=== PATIENT | female | born 1945 | race Caucasian/White ===

== ENCOUNTER 2017-03-23 22:32 | Emergency (ER) | payer MEDICARE, MEDICAID ==
[~2017-03-23] VITALS: Ht 160 cm; Wt 59.6 kg
[~2017-03-23 22:32] MED LIST: EVOL140S SQ; FLO110IN IH; NITR0.4T SL
[2017-03-24] MEDS ORDERED: ibuprofen 200mg tablet PO ONE (02:10)
[2017-03-24 03:03] VITALS: BP 121/75
== END 2017-03-24 02:43 | disposition home or self-care (01) ==
LOC: ER 22:33
DX: S62.393A Other fracture of third metacarpal bone, left hand, initial encounter for closed fracture (principal); G89.29 Other chronic pain; M81.0 Age-related osteoporosis without current pathological fracture; K21.9 Gastro-esophageal reflux disease without esophagitis; C18.9 Malignant neoplasm of colon, unspecified; E78.00 Pure hypercholesterolemia, unspecified; Z88.5 Allergy status to narcotic agent; Z88.8 Allergy status to other drugs, medicaments and biological substances; W01.0XXA Fall on same level from slipping, tripping and stumbling without subsequent striking against object, initial encounter; Y93.89 Activity, other specified; Y92.89 Other specified places as the place of occurrence of the external cause; Y99.8 Other external cause status
CPT/HCPCS: 29125; 73130; 99284

== ENCOUNTER 2017-03-27 08:45 | Emergency (ER) | payer MEDICARE, MEDICAID ==
[~2017-03-27] VITALS: Ht 162.6 cm; Wt 58.0 kg
[2017-03-27 11:27] VITALS: BP 90/72
== END 2017-03-27 11:28 | disposition home or self-care (01) ==
LOC: ER 08:46
DX: M79.642 Pain in left hand (principal); K21.9 Gastro-esophageal reflux disease without esophagitis; E78.00 Pure hypercholesterolemia, unspecified; Z87.11 Personal history of peptic ulcer disease; G89.29 Other chronic pain; F41.9 Anxiety disorder, unspecified; Z85.038 Personal history of other malignant neoplasm of large intestine; Z90.49 Acquired absence of other specified parts of digestive tract; Z90.710 Acquired absence of both cervix and uterus; Z87.440 Personal history of urinary (tract) infections
CPT/HCPCS: 29125; 99283; A6449

== ENCOUNTER 2017-08-30 05:07 | Day surgery (SDC) | payer MEDICARE, MEDICAID ==
[2017-08-21 14:12] LABS: BASOPHILS % (AUTO) 0.4 % (0-1); EOSINOPHILS # (AUTO) 0.2 X10'3 (0-0.9); EOSINOPHILS % (AUTO) 3.2 % (0-6); LYMPHOCYTES # (AUTO) 1.7 X10'3 (1.1-4.8); LYMPHOCYTES % (AUTO) 31.6 % (21-51); MEAN CORPUSCULAR HEMOGLOBIN 32.5 PG (27.0-31.0); MEAN CORPUSCULAR HGB CONC 34.6 % (33.0-36.5); MEAN CORPUSCULAR VOLUME 94.1 FL (78-98); MEAN PLATELET VOLUME 7.7 FL (7.4-10.4); MONOCYTES # (AUTO) 0.5 X10'3 (0-0.9); MONOCYTES % (AUTO) 9.6 % (2-12); NEUTROPHILS # (AUTO) 2.9 X10'3 (1.8-7.7); NEUTROPHILS % (AUTO) 55.2 % (42-75); PRE OP HEMATOCRIT 38.9 % (35.0-45.0); PRE OP HEMOGLOBIN 13.5 g/dL (12.0-16.0); PRE OP PLATELET COUNT 237 X10'3 (140-440); RED BLOOD COUNT 4.14 X10'6 (4.20-5.60); RED CELL DISTRIBUTION WIDTH 12.5 % (11.5-14.5)
[2017-08-21 14:28] LABS: ALBUMIN 3.4 G/DL (3.4-5.0); ALBUMIN/GLOBULIN RATIO 0.9 (1.1-1.5); ALKALINE PHOSPHATASE 90 IU/L (46-116); BLOOD UREA NITROGEN 19 MG/DL (7-18); BUN/CREATININE RATIO 24.7 (6.6-38.0); CALCIUM 8.9 MG/DL (8.5-10.1); CHLORIDE 105 MMOL/L (99-107); CREATININE 0.77 MG/DL (0.40-0.90); PRE OP ALT 43 U/L (30-65); PRE OP ANION GAP 9 (8-16); PRE OP AST 26 U/L (10-37); PRE OP BILIRUB, TOTAL 0.3 MG/DL (0.0-1.0); PRE OP GLUCOSE 93 MG/DL (70-104); PRE OP POTASSIUM 3.9 MMOL/L (3.4-5.1); PRE OP SODIUM 142 MMOL/L (135-145); TOTAL CARBON DIOXIDE 28.3 MMOL/L (24-32); TOTAL PROTEIN 7.4 G/DL (6.4-8.2); eGFR 74 ML/MIN
[2017-08-30] VITALS (8 sets, daily range): BP systolic 103–152; BP diastolic 59–89
[~2017-08-30] VITALS: Ht 160 cm; Wt 57.8 kg
[~2017-08-30 05:07] MED LIST changes: +ALBU18HF2 INH; +ASCO-134 PO; +CHOL100044 PO; +EVOL140S IM; -EVOL140S SQ; -FLO110IN IH; +LIDOcaine 2% (20mg/ml) 5ml vial ONE; -NITR0.4T SL; +atropine 0.4 mg/ml 20ml vial ONE; +dexamethasone sod phosphate 4mg/ml inj. ONE; +epiNEPHrine 1 mg/ml inj ONE; +fentaNYL /PF 50mcg/ml 5ml ampule ONE; +midazolam 2 mg/2 ml injection ONE; +ondansetron/PF 4mg/2ml inj ONE; +propofol inj 20 ML IV ONE; +ringers solution, lacted 1,000 ML IV SCH
[2017-08-30] MEDS ORDERED: ceFAZolin inj. 1,000 MG in dextrose 5%-water 50ml 50 ML IV ONE (05:30)
[2017-08-30] MEDS ORDERED: famotidine 20mg tablet PO ONE (05:30)
[2017-08-30] MEDS ORDERED: albuterol 2.5 MG/3 ML nebule NEB ONE (05:30)
[2017-08-30] MEDS ORDERED: LIDOcaine 1% (10mg/ml) 2ml vial ONE (05:38)
[2017-08-30] MEDS ORDERED: ROPIVAcaine 0.5% (5mg/ml) 30ml vial ONE (06:41)
[2017-08-30] MEDS ORDERED: LIDOcaine 0.5% (5mg/ml) 50ml vial ONE (07:23)
[2017-08-30] MEDS ORDERED: fentaNYL/PF 50MCG/1 ML 2ML syringe IV PRN ×2 (07:25)
[2017-08-30] MEDS ORDERED: proCHLORperazine 10 MG/2 ml inj IV PRN (07:25)
[2017-08-30] MEDS ORDERED: ringers solution, lacted 1,000 ML IV SCH (07:25)
[2017-08-30] MEDS ORDERED: HYDROmorphone inj. 0.5 MG/0.5 ML DISP.SYRIN IV PRN ×2 (07:25)
[2017-08-30] MEDS ORDERED: ondansetron/PF 4mg/2ml inj IV PRN (07:25)
[2017-08-30] MEDS ORDERED: propofol inj 20 ML IV ONE ×3 (08:04→08:41)
[2017-08-30] MEDS ORDERED: LIDOcaine 1%/PF 5ML 10 MG/ML VIAL ONE (08:04)
[2017-08-30] MEDS ORDERED: sodium bicarbonate 1 MEQ/1 ml inj ONE (08:04)
[2017-08-30] MEDS ORDERED: acetaminophen 1,000mg/100ml IV 100 ML IV SCH (09:25)
== END 2017-08-30 09:59 | disposition home or self-care (01) ==
LOC: PAS 05:07
PROVIDERS: ATTEND Orthopaedic Surgery Hand Surgery
DX: M65.332 Trigger finger, left middle finger (principal); M19.042 Primary osteoarthritis, left hand; S63.213A Subluxation of metacarpophalangeal joint of left middle finger, initial encounter; J45.998 Other asthma; I25.10 Atherosclerotic heart disease of native coronary artery without angina pectoris; K92.1 Melena; M19.90 Unspecified osteoarthritis, unspecified site; B19.20 Unspecified viral hepatitis C without hepatic coma; Z87.891 Personal history of nicotine dependence; Z87.11 Personal history of peptic ulcer disease; Z90.49 Acquired absence of other specified parts of digestive tract; Z85.038 Personal history of other malignant neoplasm of large intestine; Z88.5 Allergy status to narcotic agent; Z88.6 Allergy status to analgesic agent; Z90.89 Acquired absence of other organs; Z90.710 Acquired absence of both cervix and uterus; Z96.652 Presence of left artificial knee joint; Z90.11 Acquired absence of right breast and nipple; Z79.1 Long term (current) use of non-steroidal anti-inflammatories (NSAID); Z88.8 Allergy status to other drugs, medicaments and biological substances; Z98.890 Other specified postprocedural states; Z79.899 Other long term (current) drug therapy; X58.XXXA Exposure to other specified factors, initial encounter; Y93.89 Activity, other specified; Y92.89 Other specified places as the place of occurrence of the external cause; Y99.8 Other external cause status
CPT/HCPCS: 26055; 26531; 36415; 80053; 85025; A6222; A6449; J0131; J0171; J0461; J0690; J1100; J2001; J2250; J2405; J2704; J2795; J3010; J3490; J7060; J7120; L8630; A7000

== ENCOUNTER 2018-04-07 14:20 | Outpatient (CLI) | payer MEDICARE, MEDICAID ==
[~2018-04-07 14:20] MED LIST changes: -LIDOcaine 2% (20mg/ml) 5ml vial ONE; -atropine 0.4 mg/ml 20ml vial ONE; -dexamethasone sod phosphate 4mg/ml inj. ONE; -epiNEPHrine 1 mg/ml inj ONE; -fentaNYL /PF 50mcg/ml 5ml ampule ONE; -midazolam 2 mg/2 ml injection ONE; -ondansetron/PF 4mg/2ml inj ONE; -propofol inj 20 ML IV ONE; -ringers solution, lacted 1,000 ML IV SCH
[2018-04-17] MEDS ORDERED: tetracaine 1% (10mg/ml) pres. free inj. ONE (07:27)
== END 2018-04-07 23:59 | disposition home or self-care (01) ==
LOC: PRE-OP 14:20 → EDSTATUS 04-18 13:00
PROVIDERS: ATTEND Orthopaedic Surgery Hand Surgery
DX: M79.642 Pain in left hand (principal); M19.042 Primary osteoarthritis, left hand; M25.342 Other instability, left hand; Z53.21 Procedure and treatment not carried out due to patient leaving prior to being seen by health care provider

== ENCOUNTER 2018-06-20 05:54 | Day surgery (SDC) | payer MEDICARE, MEDICAID ==
[2018-06-13 11:53] LABS: BASOPHILS % (AUTO) 0.7 % (0-1); EOSINOPHILS # (AUTO) 0.2 X10'3 (0-0.9); EOSINOPHILS % (AUTO) 3.9 % (0-6); LYMPHOCYTES # (AUTO) 1.4 X10'3 (1.1-4.8); LYMPHOCYTES % (AUTO) 30.4 % (21-51); MEAN CORPUSCULAR HGB CONC 33.4 g/dL (33.0-36.5); MEAN PLATELET VOLUME 7.7 FL (7.4-10.4); MONOCYTES # (AUTO) 0.5 X10'3 (0-0.9); MONOCYTES % (AUTO) 11.2 % (2-12); NEUTROPHILS # (AUTO) 2.4 X10'3 (1.8-7.7); NEUTROPHILS % (AUTO) 53.8 % (42-75); PRE OP HEMATOCRIT 39.9 % (35.0-45.0); PRE OP HEMOGLOBIN 13.3 g/dL (12.0-16.0); PRE OP PLATELET COUNT 309 X10'3 (140-440); RED BLOOD COUNT 4.16 X10'6 (4.20-5.60)
[2018-06-13 12:06] LABS: ALBUMIN 3.4 G/DL (3.4-5.0); ALBUMIN/GLOBULIN RATIO 0.9 (1.1-1.5); ALKALINE PHOSPHATASE 77 IU/L (46-116); BLOOD UREA NITROGEN 21 MG/DL (7-18); BUN/CREATININE RATIO 30.9 (6.6-38.0); CALCIUM 9.6 MG/DL (8.5-10.1); CHLORIDE 109 MMOL/L (99-107); CREATININE 0.68 MG/DL (0.40-0.90); PRE OP ALT 21 U/L (30-65); PRE OP ANION GAP 7 (8-16); PRE OP AST 17 U/L (10-37); PRE OP BILIRUB, TOTAL 0.2 MG/DL (0.0-1.0); PRE OP GLUCOSE 71 MG/DL (70-104); PRE OP POTASSIUM 3.9 MMOL/L (3.4-5.1); PRE OP SODIUM 145 MMOL/L (135-145); TOTAL CARBON DIOXIDE 28.7 MMOL/L (24-32); TOTAL PROTEIN 7.2 G/DL (6.4-8.2); eGFR 86 ML/MIN
[~2018-06-20] VITALS: Ht 160 cm; Wt 59.1 kg
[2018-06-20] VITALS (10 sets, daily range): BP systolic 114–134; BP diastolic 70–80
[~2018-06-20 05:54] MED LIST changes: -ALBU18HF2 INH; +ALBU8.5H8 IH; +ASPI81TA52 PO; +BECL7.3A INH; +BIOT5000 PO; +CELE-193 PO; -CHOL100044 PO; +CYAN25003 PO; +LACT1CAP65 PO; +NITR0.4T SL; +POLY17PO10 PO; +TRAM50TA2 PO; +VITA400C19 PO; +[UNRECOGNIZED DRUG - MIXTURE] PO; +ceFAZolin 1,000 MG/D5W 50ML IVPB Premixed bag IV ONE; +cefazolin/dext.iso 2gm/100 ML IV ONE; +famotidine 20mg tablet PO ONE; +ringers solution, lacted 1,000 ML IV SCH
[2018-06-20] MEDS ORDERED: BUPIVAcaine/PF 2.5mg/ml (0.25%) 10ml vial ONE (06:49)
[2018-06-20] MEDS ORDERED: LIDOcaine 1% 30ml preserv. free vial ONE (07:33)
[2018-06-20] MEDS ORDERED: ketorolac trometh. 30mg/ml inj. ONE (08:09)
[2018-06-20] MEDS ORDERED: 0.9 % SODIUM CHLORIDE 10 ML VIAL ONE ×2 (08:11)
[2018-06-20] MEDS ORDERED: ringers solution, lacted 1,000 ML IV SCH (08:13)
[2018-06-20] MEDS ORDERED: proCHLORperazine 10 MG/2 ml inj IV PRN (08:15)
[2018-06-20] MEDS ORDERED: fentaNYL/PF 50MCG/1 ML 2ML syringe IV PRN (08:15)
[2018-06-20] MEDS ORDERED: ondansetron/PF 4mg/2ml inj IV PRN (08:15)
[2018-06-20] MEDS ORDERED: fentaNYL/PF 50MCG/1 ML 2ML syringe ONE (08:17)
[2018-06-20] MEDS ORDERED: MIDAZolam 5mg/5ml vial ONE (08:18)
[2018-06-20] MEDS ORDERED: LIDOcaine 2% (20mg/ml) 5ml vial ONE (09:03)
[2018-06-20] MEDS ORDERED: propofol inj 20 ML IV ONE (09:03)
--- NOTE | 2018-06-20 09:15 | NUR ---
Received from OR via bed, accompanied by Anesthesiologist. Report received. Initial physical assessment done and recorded.
--- NOTE | 2018-06-20 10:30 | NUR ---
Discharged home in good condition. No complaints of pain during post op period, no pain meds given no complaintsDischarge criteria met, discharge instructions given, demonstrates verbal understanding.
== END 2018-06-20 10:30 | disposition home or self-care (01) ==
LOC: PAS 05:54
PROVIDERS: ATTEND Orthopaedic Surgery Hand Surgery
DX: M25.342 Other instability, left hand (principal); M19.042 Primary osteoarthritis, left hand; Z79.899 Other long term (current) drug therapy; M19.041 Primary osteoarthritis, right hand; Z98.890 Other specified postprocedural states; Z80.8 Family history of malignant neoplasm of other organs or systems
CPT/HCPCS: 26437; 36415; 80053; 82948; 85025; 93005; A6222; A6449; J0690; J1885; J2001; J2250; J2704; J3010; J3490; J7120

== ENCOUNTER 2018-07-31 07:35 | Emergency (ER) | payer MEDICAID, MEDICARE ==
[~2018-07-31] VITALS: Ht 160 cm; Wt 51.0 kg
[~2018-07-31 07:35] MED LIST changes: -ceFAZolin 1,000 MG/D5W 50ML IVPB Premixed bag IV ONE; -cefazolin/dext.iso 2gm/100 ML IV ONE; -famotidine 20mg tablet PO ONE; -ringers solution, lacted 1,000 ML IV SCH
[2018-07-31] MEDS ORDERED: ketorolac trometh. 30mg/ml inj. IM ONE (08:00)
[2018-07-31] MEDS ORDERED: TRAM50TA2 PO (08:46)
[2018-07-31 08:50] VITALS: BP 120/78
== END 2018-07-31 08:53 | disposition home or self-care (01) ==
LOC: ER 07:36
DX: S63.591A Other specified sprain of right wrist, initial encounter (principal); E78.00 Pure hypercholesterolemia, unspecified; J45.909 Unspecified asthma, uncomplicated; K21.9 Gastro-esophageal reflux disease without esophagitis; G89.29 Other chronic pain; M81.0 Age-related osteoporosis without current pathological fracture; Z85.038 Personal history of other malignant neoplasm of large intestine; Z90.49 Acquired absence of other specified parts of digestive tract; Z90.710 Acquired absence of both cervix and uterus; Z98.890 Other specified postprocedural states; Z88.5 Allergy status to narcotic agent; Z88.8 Allergy status to other drugs, medicaments and biological substances; Z88.6 Allergy status to analgesic agent; Z79.82 Long term (current) use of aspirin; Z79.899 Other long term (current) drug therapy; X50.1XXA Overexertion from prolonged static or awkward postures, initial encounter; Y93.89 Activity, other specified; Y92.89 Other specified places as the place of occurrence of the external cause; Y99.9 Unspecified external cause status
CPT/HCPCS: 29125; 73110; 96372; 99283; J1885

== ENCOUNTER 2019-01-05 07:27 | Day surgery (SDC) | payer MEDICARE, MEDICAID ==
[2018-12-29 14:08] LABS: BASOPHILS % (AUTO) 0.7 % (0-1); EOSINOPHILS # (AUTO) 0.1 X10'3 (0-0.9); EOSINOPHILS % (AUTO) 2.6 % (0-6); LYMPHOCYTES # (AUTO) 1.5 X10'3 (1.1-4.8); LYMPHOCYTES % (AUTO) 27.6 % (21-51); MEAN CORPUSCULAR HEMOGLOBIN 32.9 PG (27.0-31.0); MEAN CORPUSCULAR HGB CONC 34.4 g/dL (33.0-36.5); MEAN CORPUSCULAR VOLUME 95.8 FL (78-98); MEAN PLATELET VOLUME 8.3 FL (7.4-10.4); MONOCYTES # (AUTO) 0.5 X10'3 (0-0.9); MONOCYTES % (AUTO) 8.5 % (2-12); NEUTROPHILS # (AUTO) 3.3 X10'3 (1.8-7.7); NEUTROPHILS % (AUTO) 60.6 % (42-75); PRE OP HEMATOCRIT 38.2 % (35.0-45.0); PRE OP HEMOGLOBIN 13.1 g/dL (12.0-16.0); PRE OP PLATELET COUNT 218 X10'3 (140-440); RED BLOOD COUNT 3.99 X10'6 (4.20-5.60); RED CELL DISTRIBUTION WIDTH 12.8 % (11.5-14.5)
[2018-12-29 14:24] LABS: ALBUMIN 3.5 G/DL (3.4-5.0); ALBUMIN/GLOBULIN RATIO 0.9 (1.1-1.5); ALKALINE PHOSPHATASE 89 IU/L (46-116); BLOOD UREA NITROGEN 14 MG/DL (7-18); BUN/CREATININE RATIO 19.7 (6.6-38.0); CALCIUM 9.4 MG/DL (8.5-10.1); CHLORIDE 109 MMOL/L (99-107); CREATININE 0.71 MG/DL (0.40-0.90); PRE OP ALT 31 U/L (30-65); PRE OP ANION GAP 5 (8-16); PRE OP AST 21 U/L (10-37); PRE OP BILIRUB, TOTAL 0.3 MG/DL (0.0-1.0); PRE OP GLUCOSE 89 MG/DL (70-104); PRE OP SODIUM 143 MMOL/L (135-145); TOTAL CARBON DIOXIDE 28.8 MMOL/L (24-32); TOTAL PROTEIN 7.4 G/DL (6.4-8.2); eGFR 81 ML/MIN
[2019-01-05] VITALS (7 sets, daily range): BP systolic 111–156; BP diastolic 66–88
[~2019-01-05] VITALS: Ht 160 cm; Wt 57.2 kg
[~2019-01-05 07:27] MED LIST changes: -ALBU8.5H8 IH; -ASCO-134 PO; -ASPI81TA52 PO; -BECL7.3A INH; -BIOT5000 PO; +BUPIVAcaine/PF 2.5mg/ml (0.25%) 10ml vial ONE; -CELE-193 PO; -CYAN25003 PO; -LACT1CAP65 PO; -NITR0.4T SL; -POLY17PO10 PO; -TRAM50TA2 PO; -VITA400C19 PO; -[UNRECOGNIZED DRUG - MIXTURE] PO
[2019-01-05] MEDS ORDERED: LIDOcaine 0.5% (5mg/ml) 50ml vial ONE (08:37)
[2019-01-05] MEDS ORDERED: ringers solution, lacted 1,000 ML IV SCH ×2 (09:13→10:00)
[2019-01-05] MEDS ORDERED: ondansetron/PF 4mg/2ml inj IV PRN (09:15)
[2019-01-05] MEDS ORDERED: HYDROmorphone inj. 0.5 MG/0.5 ML DISP.SYRIN IV PRN ×2 (09:15)
[2019-01-05] MEDS ORDERED: acetaminophen 1,000mg/100ml IV 100 ML IV PRN (09:15)
[2019-01-05] MEDS ORDERED: fentaNYL/PF 50MCG/1 ML 2ML syringe ONE (09:42)
[2019-01-05] MEDS ORDERED: midazolam 2 mg/2 ml injection ONE (09:43)
[2019-01-05] MEDS ORDERED: famotidine 20mg tablet PO ONE (10:00)
[2019-01-05] MEDS ORDERED: ceFAZolin 1GM/D5W- ADD-VANTAGE 50 ML IV ONE (10:00)
[2019-01-05] MEDS ORDERED: propofol inj 20 ML IV ONE (10:21)
--- NOTE | 2019-01-05 11:32 | NUR ---
AWAKE AND ORIENTED. VITALS STABLE. DRESSING DI. ANTHONY PAIN. HOME WITH HER SPOUSE AT THIS TIME.
== END 2019-01-05 11:32 | disposition home or self-care (01) ==
LOC: PAS 07:27
PROVIDERS: ATTEND Orthopaedic Surgery Hand Surgery
DX: M25.342 Other instability, left hand (principal); M67.421 Ganglion, right elbow; J45.909 Unspecified asthma, uncomplicated; F41.9 Anxiety disorder, unspecified; M65.812 Other synovitis and tenosynovitis, left shoulder; M65.811 Other synovitis and tenosynovitis, right shoulder; M19.041 Primary osteoarthritis, right hand; M19.042 Primary osteoarthritis, left hand; I25.10 Atherosclerotic heart disease of native coronary artery without angina pectoris; Z87.891 Personal history of nicotine dependence; Z86.19 Personal history of other infectious and parasitic diseases; Z85.038 Personal history of other malignant neoplasm of large intestine; Z88.8 Allergy status to other drugs, medicaments and biological substances; Z88.5 Allergy status to narcotic agent; Z90.49 Acquired absence of other specified parts of digestive tract; Z98.890 Other specified postprocedural states; Z96.652 Presence of left artificial knee joint; Z80.9 Family history of malignant neoplasm, unspecified
CPT/HCPCS: 24076; 26437; 36415; 80053; 82948; 85025; 93005; J0690; J2001; J2250; J2704; J3010; J3490; A4215; A6449; J7120

== ENCOUNTER 2019-05-04 11:42 | Emergency (ER) | payer MEDICARE, MEDICAID ==
[~2019-05-04] VITALS: Ht 160 cm; Wt 60.0 kg
[~2019-05-04 11:42] MED LIST changes: -BUPIVAcaine/PF 2.5mg/ml (0.25%) 10ml vial ONE; -EVOL140S IM; +EVOL140S2 IM
[2019-05-04] MEDS ORDERED: acetaminophen 325mg tablet PO ONE (12:05)
[2019-05-04 12:44] VITALS: BP 91/53
--- NOTE | 2019-05-04 12:45 | NUR ---
PT AMB TO BATHROOM AND BACK TO ROOM. XRAY IN FOR FOR SCAN. AT BEDSIDE. PT C/O HEADACHE PAIN.
== END 2019-05-04 13:22 | disposition home or self-care (01) ==
LOC: ER 11:42
DX: S16.1XXA Strain of muscle, fascia and tendon at neck level, initial encounter (principal); S40.012A Contusion of left shoulder, initial encounter; S00.03XA Contusion of scalp, initial encounter; E78.00 Pure hypercholesterolemia, unspecified; J45.909 Unspecified asthma, uncomplicated; K21.9 Gastro-esophageal reflux disease without esophagitis; G89.29 Other chronic pain; Z90.49 Acquired absence of other specified parts of digestive tract; Z90.710 Acquired absence of both cervix and uterus; Z98.890 Other specified postprocedural states; Z87.11 Personal history of peptic ulcer disease; Z85.038 Personal history of other malignant neoplasm of large intestine; Z88.5 Allergy status to narcotic agent; Z88.6 Allergy status to analgesic agent; Z88.8 Allergy status to other drugs, medicaments and biological substances; W10.9XXA Fall (on) (from) unspecified stairs and steps, initial encounter; Y93.01 Activity, walking, marching and hiking; Y92.89 Other specified places as the place of occurrence of the external cause; Y99.9 Unspecified external cause status
CPT/HCPCS: 70450; 72125; 72128; 73030; 99285

== ENCOUNTER 2019-07-26 00:07 | Emergency (ER) | payer MEDICARE, MEDICAID ==
[~2019-07-26] VITALS: Ht 160 cm; Wt 58.1 kg
[2019-07-26] MEDS ORDERED: acetaminophen 325mg tablet PO ONE (00:10)
[2019-07-26] MEDS ORDERED: ketorolac trometh inj. 60 MG/2 ML VIAL IM ONE (01:00)
[2019-07-26 01:42] VITALS: BP 112/70
== END 2019-07-26 01:44 | disposition home or self-care (01) ==
LOC: ER 00:08
DX: S80.02XA Contusion of left knee, initial encounter (principal); E78.00 Pure hypercholesterolemia, unspecified; J45.909 Unspecified asthma, uncomplicated; K21.9 Gastro-esophageal reflux disease without esophagitis; G89.29 Other chronic pain; M81.0 Age-related osteoporosis without current pathological fracture; Z87.11 Personal history of peptic ulcer disease; Z90.49 Acquired absence of other specified parts of digestive tract; Z90.710 Acquired absence of both cervix and uterus; Z98.890 Other specified postprocedural states; Z88.5 Allergy status to narcotic agent; Z88.6 Allergy status to analgesic agent; W54.1XXA Struck by dog, initial encounter; Y93.89 Activity, other specified; Y92.89 Other specified places as the place of occurrence of the external cause; Y99.9 Unspecified external cause status
CPT/HCPCS: 73564; 96372; 99283; J1885

== ENCOUNTER 2020-01-13 10:09 | Day surgery (SDC) | payer MEDICARE, MEDICAID ==
[2020-01-06 10:15] LABS: BASOPHILS % (AUTO) 0.4 % (0-1); EOSINOPHILS # (AUTO) 0.1 X10'3 (0-0.9); EOSINOPHILS % (AUTO) 0.7 % (0-6); LYMPHOCYTES # (AUTO) 1.3 X10'3 (1.1-4.8); LYMPHOCYTES % (AUTO) 18.5 % (21-51); MEAN CORPUSCULAR HEMOGLOBIN 32.3 PG (27.0-31.0); MEAN CORPUSCULAR VOLUME 95.1 FL (78-98); MEAN PLATELET VOLUME 8.8 FL (7.4-10.4); MONOCYTES # (AUTO) 0.8 X10'3 (0-0.9); MONOCYTES % (AUTO) 11.1 % (2-12); NEUTROPHILS % (AUTO) 69.3 % (42-75); PRE OP HEMATOCRIT 41.8 % (35.0-45.0); PRE OP HEMOGLOBIN 14.2 g/dL (12.0-16.0); PRE OP PLATELET COUNT 231 X10'3 (140-440); RED BLOOD COUNT 4.39 X10'6 (4.20-5.60); RED CELL DISTRIBUTION WIDTH 12.4 % (11.5-14.5)
[2020-01-06 10:27] LABS: ALBUMIN 3.6 G/DL (3.4-5.0); ALKALINE PHOSPHATASE 76 IU/L (46-116); BLOOD UREA NITROGEN 18 MG/DL (7-18); BUN/CREATININE RATIO 25.4 (6.6-38.0); CALCIUM 9.7 MG/DL (8.5-10.1); CHLORIDE 105 MMOL/L (99-107); CREATININE 0.71 MG/DL (0.40-0.90); PRE OP ALT 26 U/L (30-65); PRE OP ANION GAP 6 (8-16); PRE OP AST 16 U/L (10-37); PRE OP BILIRUB, TOTAL 0.4 MG/DL (0.0-1.0); PRE OP GLUCOSE 75 MG/DL (70-104); PRE OP POTASSIUM 3.8 MMOL/L (3.4-5.1); PRE OP SODIUM 141 MMOL/L (135-145); TOTAL CARBON DIOXIDE 30.5 MMOL/L (24-32); TOTAL PROTEIN 7.3 G/DL (6.4-8.2); eGFR 81 ML/MIN
[2020-01-06 10:37] LABS: CLARITY,URINE SLIGHTLY CLOUDY (Clear); COLOR,URINE YELLOW (Yellow); GLUCOSE, URINE NEGATIVE (Neg); KETONES,URINE TRACE mg/dl (Neg); LEUKOCYTE ESTERASE ,URINE NEGATIVE (Neg); NITRITES, URINE NEGATIVE (Neg); OCCULT BLOOD,URINE NEGATIVE (Neg); PH,URINE 5.5 (4.8-8.0); PROTEIN,URINE NEGATIVE (Neg); UROBILINOGEN,URINE 0.2 E.U/dL (0.2-1.0)
[2020-01-06 10:39] LABS: UA COLLECTION TYPE CLN CATCH MIDSTREAM
[2020-01-06 10:44] LABS: CAL OXALATE CRYSTALS 2+ /HPF (NEGATIVE)
[2020-01-06 10:45] LABS: BACTERIA,URINE NONE SEEN /HPF (Neg); MUCUS STRANDS NONE SEEN /LPF (Neg); RBC,URINE NONE SEEN /HPF (0-2); SQUAMOUS EPITHELIAL CELL,UR FEW /LPF (FEW); WBC,URINE 0-4 /HPF (0-4)
[~2020-01-13] VITALS: Ht 160 cm; Wt 60.0 kg
[2020-01-13] VITALS (12 sets, daily range): BP systolic 107–139; BP diastolic 52–73
[~2020-01-13 10:09] MED LIST changes: +ASPI81TA30 PO; +AZEL137S4; +BUPR75TA12 PO; +FLUT1BLS3 INH; +MONT10TA26 PO; +cefazolin/dext.iso 2gm/50ml 50 ML IV ONE; +famotidine 20mg tablet PO ONE; +ringers solution, lacted 1,000 ML IV SCH
[2020-01-13] MEDS ORDERED: labetalol 20mg/4ml (5mg/ml) syringe IV PRN (10:10)
[2020-01-13] MEDS ORDERED: enalaprilat dihydrate 2.5mg/2ml vial IV PRN (10:10)
[2020-01-13] MEDS ORDERED: proCHLORperazine 10 MG/2 ml inj IV PRN ×2 (10:10)
[2020-01-13] MEDS ORDERED: ringers solution, lacted 1,000 ML IV SCH ×2 (10:10)
[2020-01-13] MEDS ORDERED: ondansetron/PF 4mg/2ml inj IV PRN ×2 (10:10)
[2020-01-13] MEDS ORDERED: LIDOcaine 1% 30ml preserv. free vial ONE (12:47)
[2020-01-13] MEDS ORDERED: BUPIVAcaine/PF 2.5 mg/ml (0.25%) 30ml vial ONE (12:47)
[2020-01-13] MEDS ORDERED: aprepitant 40mg capsule PO ONE (14:12)
[2020-01-13] MEDS ORDERED: fentaNYL/PF 50MCG/1 ML 2ML syringe ONE (15:15)
[2020-01-13] MEDS ORDERED: MIDAZolam 5mg/5ml vial ONE (15:16)
--- NOTE | 2020-01-13 15:45 | NUR ---
Received from OR via [facility], accompanied by Anesthesiologist DR GRAHAM and report given by Anesthesiologist. PT DROWSY, DENIES PAIN, RIGHT GROIN W/[place] DRSG COVERING INCISION CDI. Addendum: 01/13/20 at 1621 by Maryellen Ambrose RN Amended: Links added.
--- NOTE | 2020-01-13 18:15 | NUR ---
PT UP AND ABLE TO AMBULATE SAFELY, PT WENT TO BATHROOM X 2 FOR 2 VOIDS, D/C INSTRUCTIONS GIVEN AND GONE OVER W/PT WHO VERBALIZED UNDERSTANDING, PTS ARRIVED TO [facility] [facility] PT, PT DC/D TO HOME VIA W/C TO PRIVATE VEHICLE W/O INCIDENT. Addendum: 01/13/20 at 1831 by Maryellen Ambrose RN Amended: Links added.
== END 2020-01-13 18:15 | disposition home or self-care (01) ==
LOC: PAS 10:09
PROVIDERS: ATTEND Surgery
DX: R19.09 Other intra-abdominal and pelvic swelling, mass and lump (principal); D17.1 Benign lipomatous neoplasm of skin and subcutaneous tissue of trunk; J45.909 Unspecified asthma, uncomplicated; F41.9 Anxiety disorder, unspecified; F32.9 Major depressive disorder, single episode, unspecified; H81.09 Meniere's disease, unspecified ear; I25.10 Atherosclerotic heart disease of native coronary artery without angina pectoris; M19.90 Unspecified osteoarthritis, unspecified site; M54.30 Sciatica, unspecified side; E53.8 Deficiency of other specified B group vitamins; Z88.5 Allergy status to narcotic agent; Z88.8 Allergy status to other drugs, medicaments and biological substances; Z20.828 Contact with and (suspected) exposure to other viral communicable diseases; Z79.899 Other long term (current) drug therapy; Z87.891 Personal history of nicotine dependence; Z98.890 Other specified postprocedural states; Z90.710 Acquired absence of both cervix and uterus; Z96.659 Presence of unspecified artificial knee joint; Z85.038 Personal history of other malignant neoplasm of large intestine; Z86.19 Personal history of other infectious and parasitic diseases; Z80.0 Family history of malignant neoplasm of digestive organs; Z80.1 Family history of malignant neoplasm of trachea, bronchus and lung
CPT/HCPCS: 21931; 36415; 80053; 81001; 82948; 85025; 87635; 93005; J2001; J2250; J3010; J3490; J8501; A4215; A4615; A7000; J7120

== ENCOUNTER 2020-08-23 18:52 | Emergency (ER) | payer MEDICARE, MEDICAID ==
[~2020-08-23] VITALS: Ht 162.6 cm; Wt 72.0 kg
[~2020-08-23 18:52] MED LIST changes: -MONT10TA26 PO; +MONT10TA32 PO; -cefazolin/dext.iso 2gm/50ml 50 ML IV ONE; -famotidine 20mg tablet PO ONE; -ringers solution, lacted 1,000 ML IV SCH
[2020-08-23] MEDS ORDERED: albuterol 2.5 MG/3 ML nebule NEB ONE (19:45)
[2020-08-23 20:07] LABS: BASOPHILS % (AUTO) 0.5 % (0-1); EOSINOPHILS # (AUTO) 0.1 X10'3 (0-0.9); EOSINOPHILS % (AUTO) 1.9 % (0-6); HEMATOCRIT 40.6 % (35.0-45.0); HEMOGLOBIN 13.7 g/dl (12.0-16.0); LYMPHOCYTES # (AUTO) 1.8 X10'3 (1.1-4.8); LYMPHOCYTES % (AUTO) 25.9 % (21-51); MEAN CORPUSCULAR HEMOGLOBIN 32.3 PG (27.0-31.0); MEAN CORPUSCULAR HGB CONC 33.9 g/dL (33.0-36.5); MEAN CORPUSCULAR VOLUME 95.4 FL (78-98); MEAN PLATELET VOLUME 8.8 FL (7.4-10.4); MONOCYTES # (AUTO) 0.7 X10'3 (0-0.9); MONOCYTES % (AUTO) 9.6 % (2-12); NEUTROPHILS # (AUTO) 4.3 X10'3 (1.8-7.7); NEUTROPHILS % (AUTO) 62.1 % (42-75); PLATELET COUNT 213 X10'3 (140-440); RED BLOOD COUNT 4.25 X10'6 (4.20-5.60); RED CELL DISTRIBUTION WIDTH 12.6 % (11.5-14.5); WHITE BLOOD COUNT 6.9 X10'3 (4.5-11.0)
[2020-08-23 20:12] LABS: D-DIMER 0.52 MG/L FEU (0-0.50)
[2020-08-23 20:17] LABS: ALANINE AMINOTRANSFERASE 26 U/L (12-78); ALBUMIN 3.7 G/DL (3.4-5.0); ALKALINE PHOSPHATASE 74 IU/L (46-116); ANION GAP 10 (8-16); ASPARTATE AMINO TRANSFERASE 22 U/L (10-37); BILIRUBIN,TOTAL 0.3 MG/DL (0.1-1.0); BLOOD UREA NITROGEN 24 MG/DL (7-18); BUN/CREATININE RATIO 29.3 (6.6-38.0); CHLORIDE 109 MMOL/L (99-107); CREATININE 0.82 MG/DL (0.40-0.90); GLUCOSE 125 MG/DL (70-104); POTASSIUM 3.5 MMOL/L (3.5-5.1); SODIUM 145 MMOL/L (135-145); TOTAL CARBON DIOXIDE 25.9 MMOL/L (24-32); TOTAL PROTEIN 7.4 G/DL (6.4-8.2); eGFR 68 ML/MIN
[2020-08-23 20:20] LABS: TROPONIN I < 0.04 NG/ML (0.0-0.05)
[2020-08-23] MEDS ORDERED: iohexol 350MG/ML 100ml bottle IV ONE (20:47)
[2020-08-23 22:10] VITALS: BP 99/43
== END 2020-08-23 22:14 | disposition home or self-care (01) ==
LOC: ER 18:52
DX: J45.901 Unspecified asthma with (acute) exacerbation (principal); E78.00 Pure hypercholesterolemia, unspecified; K21.9 Gastro-esophageal reflux disease without esophagitis; G89.29 Other chronic pain; M81.0 Age-related osteoporosis without current pathological fracture; Z87.11 Personal history of peptic ulcer disease; Z87.440 Personal history of urinary (tract) infections; Z87.81 Personal history of (healed) traumatic fracture; Z85.038 Personal history of other malignant neoplasm of large intestine; Z90.49 Acquired absence of other specified parts of digestive tract; Z90.710 Acquired absence of both cervix and uterus; Z79.82 Long term (current) use of aspirin; Z79.899 Other long term (current) drug therapy; Z88.6 Allergy status to analgesic agent; Z88.8 Allergy status to other drugs, medicaments and biological substances
CPT/HCPCS: 36415; 71045; 71275; 80053; 84484; 85025; 85379; 93005; 94640; 99285; Q9967; 94760

== ENCOUNTER 2021-05-04 06:42 | Emergency (ER) | payer MEDICARE, MEDICAID ==
[~2021-05-04] VITALS: Ht 157.5 cm; Wt 61.6 kg
[~2021-05-04 06:42] MED LIST changes: +BUPR-297 PO; -BUPR75TA12 PO; +MONT-40 PO; -MONT10TA32 PO
[2021-05-04 06:51] VITALS: BP 124/66
[2021-05-04] MEDS ORDERED: acetaminophen 325mg tablet PO ONE (07:45)
[2021-05-04] MEDS ORDERED: predniSONE 20 mg tablet PO ONE (07:45)
[2021-05-04] MEDS ORDERED: ketorolac trometh inj. 60 MG/2 ML VIAL IM ONE (07:45)
[2021-05-04] MEDS ORDERED: ondansetron 4mg rapidly disintigrating tab PO ONE (07:45)
[2021-05-04] MEDS ORDERED: PROC-8 PO (08:20)
== END 2021-05-04 08:37 | disposition home or self-care (01) ==
LOC: ER 06:43
DX: M25.531 Pain in right wrist (principal); R11.0 Nausea; E78.00 Pure hypercholesterolemia, unspecified; J45.909 Unspecified asthma, uncomplicated; K21.9 Gastro-esophageal reflux disease without esophagitis; G89.29 Other chronic pain; F41.9 Anxiety disorder, unspecified; Z87.11 Personal history of peptic ulcer disease; Z87.440 Personal history of urinary (tract) infections; Z85.038 Personal history of other malignant neoplasm of large intestine; Z90.89 Acquired absence of other organs; Z90.710 Acquired absence of both cervix and uterus; Z98.890 Other specified postprocedural states; Z88.5 Allergy status to narcotic agent; Z88.8 Allergy status to other drugs, medicaments and biological substances; Z88.6 Allergy status to analgesic agent; Z79.82 Long term (current) use of aspirin; Z79.899 Other long term (current) drug therapy
CPT/HCPCS: 73110; 73130; 96372; 99284; J1885; J7512

== ENCOUNTER 2021-06-24 21:42 | Emergency (ER) | payer MEDICARE, MEDICAID ==
[~2021-06-24] VITALS: Ht 160 cm; Wt 57.7 kg
[~2021-06-24 21:42] MED LIST changes: +PROC-8 PO
[2021-06-24 22:10] LABS: BASOPHILS % (AUTO) 0.4 % (0-1); EOSINOPHILS # (AUTO) 0.2 X10'3 (0-0.9); EOSINOPHILS % (AUTO) 2.5 % (0-6); HEMATOCRIT 41.5 % (35.0-45.0); HEMOGLOBIN 14.2 g/dl (12.0-16.0); LYMPHOCYTES # (AUTO) 1.7 X10'3 (1.1-4.8); LYMPHOCYTES % (AUTO) 23.6 % (21-51); MEAN CORPUSCULAR HEMOGLOBIN 32.2 PG (27.0-31.0); MEAN CORPUSCULAR HGB CONC 34.2 g/dL (33.0-36.5); MEAN CORPUSCULAR VOLUME 94.2 FL (78-98); MEAN PLATELET VOLUME 8.5 FL (7.4-10.4); MONOCYTES # (AUTO) 0.6 X10'3 (0-0.9); MONOCYTES % (AUTO) 9.1 % (2-12); NEUTROPHILS # (AUTO) 4.6 X10'3 (1.8-7.7); NEUTROPHILS % (AUTO) 64.4 % (42-75); PLATELET COUNT 189 X10'3 (140-440); RED CELL DISTRIBUTION WIDTH 12.6 % (11.5-14.5); WHITE BLOOD COUNT 7.1 X10'3 (4.5-11.0)
[2021-06-24] MEDS ORDERED: normal saline 1000ML IV soln IVB ONE (22:30)
[2021-06-24] MEDS ORDERED: albuterol 2.5 MG/3 ML nebule CONTNEB PRN (22:30)
[2021-06-24] MEDS ORDERED: methylPREDNISolone sod succ 125mg/2ml vial IV ONE (22:30)
[2021-06-24 22:56] LABS: ALANINE AMINOTRANSFERASE 26 U/L (12-78); ALBUMIN 3.1 G/DL (3.4-5.0); ALBUMIN/GLOBULIN RATIO 0.7 (1.1-1.5); ALKALINE PHOSPHATASE 90 IU/L (46-116); ANION GAP 11 (8-16); ASPARTATE AMINO TRANSFERASE 18 U/L (10-37); BILIRUBIN,TOTAL 0.3 MG/DL (0.1-1.0); BLOOD UREA NITROGEN 14 MG/DL (7-18); BUN/CREATININE RATIO 13.1 (6.6-38.0); CALCIUM 8.8 MG/DL (8.5-10.1); CHLORIDE 103 MMOL/L (99-107); CREATININE 1.07 MG/DL (0.40-0.90); GLUCOSE 143 MG/DL (70-104); SODIUM 140 MMOL/L (135-145); TOTAL PROTEIN 7.4 G/DL (6.4-8.2); eGFR 50 ML/MIN
[2021-06-24] MEDS ORDERED: potassium Cl 20 mEq SR tablet PO STA (23:03)
[2021-06-24] MEDS ORDERED: potassium Cl 10 mEq/100mL bag IV ONE (23:05)
[2021-06-24] MEDS ORDERED: levoFLOXACIN 750MG TABLET PO ONE (23:05)
[2021-06-24] MEDS ORDERED: LEVO500T90 PO (23:38)
[2021-06-24] MEDS ORDERED: PRED20TA PO (23:38)
[2021-06-25 00:06] VITALS: BP 125/71
== END 2021-06-25 00:09 | disposition home or self-care (01) ==
LOC: ER 21:43
DX: R06.02 Shortness of breath (principal); J32.9 Chronic sinusitis, unspecified; R05.9 Cough, unspecified; E78.00 Pure hypercholesterolemia, unspecified; J45.909 Unspecified asthma, uncomplicated; K21.9 Gastro-esophageal reflux disease without esophagitis; M81.0 Age-related osteoporosis without current pathological fracture; Z85.030 Personal history of malignant carcinoid tumor of large intestine; Z90.49 Acquired absence of other specified parts of digestive tract; Z87.01 Personal history of pneumonia (recurrent); Z87.440 Personal history of urinary (tract) infections; Z87.81 Personal history of (healed) traumatic fracture; Z90.710 Acquired absence of both cervix and uterus; Z88.8 Allergy status to other drugs, medicaments and biological substances; Z88.5 Allergy status to narcotic agent; Z79.82 Long term (current) use of aspirin; Z79.2 Long term (current) use of antibiotics; Z79.899 Other long term (current) drug therapy
CPT/HCPCS: 36415; 71045; 80053; 83880; 84484; 85025; 93005; 94644; 96361; 96374; 99285; J2930; J7030; 94640; 94760; A7015

== ENCOUNTER 2022-01-19 14:53 | Emergency (ER) | payer MEDICARE, MEDICAID ==
[~2022-01-19] VITALS: Ht 157.5 cm; Wt 55.5 kg
[2022-01-19 15:25] VITALS: BP 116/61
[2022-01-19 16:12] LABS: CLARITY,URINE SLIGHTLY CLOUDY (Clear); COLOR,URINE YELLOW (Yellow); GLUCOSE, URINE NEGATIVE (Neg); KETONES,URINE TRACE mg/dl (Neg); LEUKOCYTE ESTERASE ,URINE SMALL (Neg); NITRITES, URINE POSITIVE (Neg); OCCULT BLOOD,URINE TRACE-INTACT (Neg); PROTEIN,URINE NEGATIVE (Neg); UROBILINOGEN,URINE 0.2 E.U/dL (0.2-1.0)
[2022-01-19 16:13] LABS: UA COLLECTION TYPE CLN CATCH MIDSTREAM
[2022-01-19 16:22] LABS: BACTERIA,URINE 3+ /HPF (Neg); MUCUS STRANDS NONE SEEN /LPF (Neg); RBC,URINE 0-2 /HPF (0-2); SQUAMOUS EPITHELIAL CELL,UR FEW /LPF (FEW); WBC CLUMPS,URINE FEW /HPF (NEGATIVE); WBC,URINE 20-30 /HPF (0-4)
[2022-01-19] MEDS ORDERED: CEPH250T PO (17:15)
== END 2022-01-19 17:26 | disposition home or self-care (01) ==
LOC: ER 14:55
DX: M79.674 Pain in right toe(s) (principal); N39.0 Urinary tract infection, site not specified; K21.9 Gastro-esophageal reflux disease without esophagitis; J45.909 Unspecified asthma, uncomplicated; G89.29 Other chronic pain; M54.9 Dorsalgia, unspecified; F41.9 Anxiety disorder, unspecified; E78.00 Pure hypercholesterolemia, unspecified; Z88.5 Allergy status to narcotic agent; Z88.8 Allergy status to other drugs, medicaments and biological substances; Z79.82 Long term (current) use of aspirin
CPT/HCPCS: 73660; 81001; 87077; 87088; 87186; 99284

== ENCOUNTER 2022-04-13 08:26 | Day surgery (SDC) | payer MEDICARE, MEDICAID ==
[2022-04-10 10:23] LABS: BASOPHILS % (AUTO) 0.9 % (0-1); EOSINOPHILS # (AUTO) 0.1 X10'3 (0-0.9); EOSINOPHILS % (AUTO) 3.1 % (0-6); LYMPHOCYTES # (AUTO) 1.1 X10'3 (1.1-4.8); LYMPHOCYTES % (AUTO) 24.2 % (21-51); MEAN CORPUSCULAR HEMOGLOBIN 31.9 PG (27.0-31.0); MEAN CORPUSCULAR HGB CONC 32.9 g/dL (33.0-36.5); MEAN PLATELET VOLUME 9.1 FL (7.4-10.4); MONOCYTES # (AUTO) 0.5 X10'3 (0-0.9); MONOCYTES % (AUTO) 10.4 % (2-12); NEUTROPHILS # (AUTO) 2.7 X10'3 (1.8-7.7); NEUTROPHILS % (AUTO) 61.4 % (42-75); PRE OP HEMATOCRIT 40.6 % (35.0-45.0); PRE OP HEMOGLOBIN 13.4 g/dL (12.0-16.0); PRE OP PLATELET COUNT 195 X10'3 (140-440); RED BLOOD COUNT 4.18 X10'6 (4.20-5.60); RED CELL DISTRIBUTION WIDTH 12.4 % (11.5-14.5)
[2022-04-10 10:36] LABS: ALBUMIN 3.6 G/DL (3.4-5.0); ALBUMIN/GLOBULIN RATIO 1.1 (1.1-1.5); ALKALINE PHOSPHATASE 77 IU/L (46-116); BLOOD UREA NITROGEN 14 MG/DL (7-18); BUN/CREATININE RATIO 19.4 (6.6-38.0); CALCIUM 9.4 MG/DL (8.5-10.1); CHLORIDE 107 MMOL/L (99-107); CREATININE 0.72 MG/DL (0.40-0.90); PRE OP ALT 26 U/L (30-65); PRE OP ANION GAP 7 (8-16); PRE OP AST 21 U/L (10-37); PRE OP BILIRUB, TOTAL 0.3 MG/DL (0.0-1.0); PRE OP GLUCOSE 93 MG/DL (70-104); PRE OP POTASSIUM 4.1 MMOL/L (3.4-5.1); PRE OP SODIUM 143 MMOL/L (135-145); TOTAL CARBON DIOXIDE 28.6 MMOL/L (24-32); eGFR 79 ML/MIN
[2022-04-13] VITALS (14 sets, daily range): BP systolic 92–135; BP diastolic 42–75
[~2022-04-13] VITALS: Ht 157.5 cm; Wt 59.2 kg
[~2022-04-13 08:26] MED LIST changes: +ALBU90AE INH; -AZEL137S4; +BECL7.3A INH; +BIOTIN; -BUPR-297 PO; +CELE200C PO; +CLINDAMYCIN; +COQ; -FLUT1BLS3 INH; +HYDR-3965 PO; +LIDOcaine 0.5% (5mg/ml) 50ml vial ONE; -MONT-40 PO; +NITR0.4T51 SL; +POLY500P23 PO; +PROBIOTICS; -PROC-8 PO; +RED RICE YEAST; +SULF1TAB49 PO; +VITAMIN B-12; +VITAMIN C; +VITAMIN E; +ceFAZolin inj. 2,000 MG in dextrose 5%-water 100 ML IV ONE; +famotidine 20mg tablet PO ONE; +ringers solution, lacted 1,000 ML IV SCH
[2022-04-13] MEDS ORDERED: BUPIVAcaine 0.5% inj/PF 30 ML ONE (09:02)
[2022-04-13] MEDS ORDERED: ondansetron/PF 4mg/2ml inj IV PRN (10:00)
[2022-04-13] MEDS ORDERED: labetalol 20mg/4ml (5mg/ml) syringe IV PRN (10:00)
[2022-04-13] MEDS ORDERED: morphine 2 MG/ML inj. syringe IV PRN (10:00)
[2022-04-13] MEDS ORDERED: fentaNYL/PF 50MCG/1 ML 2ML syringe IV PRN ×2 (10:00)
[2022-04-13] MEDS ORDERED: morphine 4 MG/ML inj SYRINge IV PRN (10:00)
[2022-04-13] MEDS ORDERED: hydrALAZINE 20mg/ml inj. IV PRN (10:00)
[2022-04-13] MEDS ORDERED: ringers solution, lacted 1,000 ML IV SCH (10:00)
[2022-04-13] MEDS ORDERED: LIDOcaine 0.5% (5mg/ml) 50ml vial ONE ×2 (11:45→12:02)
[2022-04-13] MEDS ORDERED: BUPIVAcaine 0.5% inj/PF 30 ml vial IJ ONE (11:52)
[2022-04-13] MEDS ORDERED: propofol inj 20 ML IV ONE (12:15)
--- NOTE | 2022-04-13 12:24 | NUR ---
Received from OR via , accompanied by Anesthesiologist DR GRANADOS and report given by Anesthesiolgist. VSS. 20G IN RIGHT WRIST NO ISSUES. PATIENT CAME OUT ON ROOM AIR. BANDAGE ON LEFT HAND,CDI. PATIENT STATES NO PAIN Addendum: 04/13/22 at 1248 by Jacqueline Gavin RN Amended: Links added.
--- NOTE | 2022-04-13 14:19 | NUR ---
ALL DISCHARGE CRITERIA HAS BEEN MET. VSS, PAIN AT A TOLERABLE LEVEL, VOIDING AND ABLE TO SAFELY AMBULATE AND TRANSFER SELF. IV TAKEN OUT WITHOUT ANY COMPLICATIONS. ALL DISCHARGE INSTRUCTIONS COVERED WITH PATIENT AND ALL QUESTIONS ANSWERED. PATIENT TAKEN OUT VIA WHEELCHAIR WITH ALL BELONGINGS TO PERSONAL VEHICLE WHERE FAMILY DROVE PATIENT HOME. Addendum: 04/13/22 at 1426 by Pedro Luis Rose RN Amended: Links added.
== END 2022-04-13 14:19 | disposition home or self-care (01) ==
LOC: PAS 08:26
PROVIDERS: ATTEND Orthopaedic Surgery Hand Surgery
DX: T84.59XA Infection and inflammatory reaction due to other internal joint prosthesis, initial encounter (principal); F41.9 Anxiety disorder, unspecified; M85.80 Other specified disorders of bone density and structure, unspecified site; M19.041 Primary osteoarthritis, right hand; M19.042 Primary osteoarthritis, left hand; J45.909 Unspecified asthma, uncomplicated; Z88.5 Allergy status to narcotic agent; Z88.8 Allergy status to other drugs, medicaments and biological substances; Z79.899 Other long term (current) drug therapy; Z96.652 Presence of left artificial knee joint; Z98.890 Other specified postprocedural states; Z90.710 Acquired absence of both cervix and uterus; Z87.891 Personal history of nicotine dependence; Z90.49 Acquired absence of other specified parts of digestive tract; Z85.038 Personal history of other malignant neoplasm of large intestine; Y83.8 Other surgical procedures as the cause of abnormal reaction of the patient, or of later complication, without mention of misadventure at the time of the procedure; Y92.89 Other specified places as the place of occurrence of the external cause
CPT/HCPCS: 26320; 26531; 36415; 80053; 82948; 85025; 87070; 87075; J0690; J2405; J2704; J3490; J7030; J7060; J7120; L8658; S0020; Z7506; Z7512; A4215; A4618; A7000

== ENCOUNTER 2022-07-10 03:01 | Emergency (ER) | payer MEDICARE, MEDICAID ==
[~2022-07-10] VITALS: Ht 160 cm; Wt 59.5 kg
[~2022-07-10 03:01] MED LIST changes: -ASPI81TA30 PO; -BIOTIN; -CELE200C PO; -CLINDAMYCIN; -COQ; -EVOL140S2 IM; +FLUT16SP13 BOTHNARES; +GUAI-1192 PO; -HYDR-3965 PO; +LACT1CAP26 PO; +LEVO-65 PO; -LIDOcaine 0.5% (5mg/ml) 50ml vial ONE; -POLY500P23 PO; +PRED20TA PO; -PROBIOTICS; -RED RICE YEAST; -SULF1TAB49 PO; -VITAMIN B-12; -VITAMIN C; -VITAMIN E; -ceFAZolin inj. 2,000 MG in dextrose 5%-water 100 ML IV ONE; -famotidine 20mg tablet PO ONE; -ringers solution, lacted 1,000 ML IV SCH
[2022-07-10] MEDS ORDERED: aspirin 81mg tab.chew PO ONE (03:10)
[2022-07-10 03:24] VITALS: BP 113/66
[2022-07-10 03:45] LABS: BASOPHILS % (AUTO) 0.2 % (0-1); EOSINOPHILS % (AUTO) 0.3 % (0-6); HEMATOCRIT 43.3 % (35.0-45.0); HEMOGLOBIN 14.5 g/dl (12.0-16.0); LYMPHOCYTES # (AUTO) 0.5 X10'3 (1.1-4.8); LYMPHOCYTES % (AUTO) 6.5 % (21-51); MEAN CORPUSCULAR HEMOGLOBIN 31.6 PG (27.0-31.0); MEAN CORPUSCULAR HGB CONC 33.5 g/dL (33.0-36.5); MEAN CORPUSCULAR VOLUME 94.3 FL (78-98); MEAN PLATELET VOLUME 8.1 FL (7.4-10.4); MONOCYTES # (AUTO) 0.4 X10'3 (0-0.9); NEUTROPHILS # (AUTO) 6.4 X10'3 (1.8-7.7); PLATELET COUNT 201 X10'3 (140-440); RED BLOOD COUNT 4.59 X10'6 (4.20-5.60); RED CELL DISTRIBUTION WIDTH 12.5 % (11.5-14.5); WHITE BLOOD COUNT 7.4 X10'3 (4.5-11.0)
[2022-07-10 04:01] LABS: ALANINE AMINOTRANSFERASE 22 U/L (12-78); ALBUMIN/GLOBULIN RATIO 0.7 (1.1-1.5); ALKALINE PHOSPHATASE 98 IU/L (46-116); ANION GAP 9 (8-16); ASPARTATE AMINO TRANSFERASE 20 U/L (10-37); BILIRUBIN,TOTAL 0.5 MG/DL (0.1-1.0); BLOOD UREA NITROGEN 10 MG/DL (7-18); BUN/CREATININE RATIO 12.7 (10.0-20.0); CALCIUM 8.2 MG/DL (8.5-10.1); CHLORIDE 101 MMOL/L (99-107); CREATININE 0.79 MG/DL (0.40-0.90); GLUCOSE 98 MG/DL (70-104); POTASSIUM 3.3 MMOL/L (3.5-5.1); SODIUM 138 MMOL/L (135-145); TOTAL CARBON DIOXIDE 28.2 MMOL/L (24-32); TOTAL PROTEIN 7.4 G/DL (6.4-8.2); eGFR 71 ML/MIN
[2022-07-10 04:37] LABS: D-DIMER 0.69 MG/L FEU (0-0.50)
[2022-07-10] MEDS ORDERED: iohexol 350MG/ML 100ml bottle IV ONE (05:17)
== END 2022-07-10 06:36 | disposition left against medical advice (07) ==
LOC: ER 03:02
DX: R06.00 Dyspnea, unspecified (principal); Z88.5 Allergy status to narcotic agent; Z88.8 Allergy status to other drugs, medicaments and biological substances
CPT/HCPCS: 36415; 71045; 80053; 83880; 84484; 85025; 85379; 85610; 93005; 99285; J3490; Q9967

== ENCOUNTER 2023-03-25 06:19 | Day surgery (SDC) | payer MEDICARE, MEDICAID ==
[2023-03-19 11:27] LABS: BASOPHILS # (AUTO) 0.1 X10'3 (0-0.2); BASOPHILS % (AUTO) 0.9 % (0-1); EOSINOPHILS # (AUTO) 0.2 X10'3 (0-0.9); EOSINOPHILS % (AUTO) 2.8 % (0-6); LYMPHOCYTES # (AUTO) 1.3 X10'3 (1.1-4.8); LYMPHOCYTES % (AUTO) 21.1 % (21-51); MEAN CORPUSCULAR HEMOGLOBIN 33.2 PG (27.0-31.0); MEAN CORPUSCULAR VOLUME 97.5 FL (78-98); MEAN PLATELET VOLUME 9.3 FL (7.4-10.4); MONOCYTES # (AUTO) 0.6 X10'3 (0-0.9); NEUTROPHILS # (AUTO) 3.9 X10'3 (1.8-7.7); NEUTROPHILS % (AUTO) 65.2 % (42-75); PRE OP HEMATOCRIT 40.4 % (35.0-45.0); PRE OP HEMOGLOBIN 13.7 g/dL (12.0-16.0); PRE OP PLATELET COUNT 191 X10'3 (140-440); RED BLOOD COUNT 4.14 X10'6 (4.20-5.60); RED CELL DISTRIBUTION WIDTH 12.6 % (11.5-14.5)
[2023-03-19 11:39] LABS: ALBUMIN 3.4 G/DL (3.4-5.0); ALBUMIN/GLOBULIN RATIO 0.9 (1.1-1.5); ALKALINE PHOSPHATASE 74 IU/L (46-116); BLOOD UREA NITROGEN 14 MG/DL (7-18); CALCIUM 9.3 MG/DL (8.5-10.1); CHLORIDE 108 MMOL/L (99-107); PRE OP ALT 31 U/L (30-65); PRE OP ANION GAP 9 (8-16); PRE OP AST 19 U/L (10-37); PRE OP BILIRUB, TOTAL 0.4 MG/DL (0.0-1.0); PRE OP GLUCOSE 68 MG/DL (70-104); PRE OP POTASSIUM 3.8 MMOL/L (3.4-5.1); PRE OP SODIUM 145 MMOL/L (135-145); TOTAL CARBON DIOXIDE 28.4 MMOL/L (24-32); TOTAL PROTEIN 7.1 G/DL (6.4-8.2); eGFR 82 ML/MIN
[~2023-03-25] VITALS: Ht 160 cm; Wt 60.0 kg
[~2023-03-25 06:19] MED LIST changes: +ASPI-1397 PO; -BECL7.3A INH; +EVOL140P3 SQ; -FLUT16SP13 BOTHNARES; -GUAI-1192 PO; -LACT1CAP26 PO; -LEVO-65 PO; -NITR0.4T51 SL; -PRED20TA PO; +VITAMIN B; +VITAMIN C; +VITAMIN D; +cefazolin 2gm/D5W 100mL 100 ML IV ONE; +famotidine 20mg tablet PO ONE; +ringers solution, lactated 500 ML IV ONE; +ringers solution, lacted 1,000 ML IV ONE; +ringers solution, lacted 1,000 ML IV SCH
[2023-03-25 06:45] VITALS: BP 140/77; PULSE 76; RESP 14; TEMP 97.2; O2SAT 100
[2023-03-25] MEDS ORDERED: BUPIVAcaine/PF 2.5mg/ml (0.25%) 10ml vial ONE (06:49)
[2023-03-25] MEDS ORDERED: proCHLORperazine 10 MG/2 ml inj IV PRN (07:30)
[2023-03-25] MEDS ORDERED: hydrALAZINE 20mg/ml inj. IV PRN (07:30)
[2023-03-25] MEDS ORDERED: labetalol 20mg/4ml (5mg/ml) syringe IV PRN (07:30)
[2023-03-25] MEDS ORDERED: acetaminophen 1,000mg/100ml IV 100 ML IV ONE (07:30)
[2023-03-25] MEDS ORDERED: fentaNYL/PF 50MCG/1 ML 2ML syringe IV PRN ×2 (07:30)
[2023-03-25] MEDS ORDERED: ringers solution, lacted 1,000 ML IV SCH (07:30)
[2023-03-25] MEDS ORDERED: ondansetron/PF 4mg/2ml inj IV PRN (07:30)
[2023-03-25] MEDS ORDERED: fentaNYL/PF 50MCG/1 ML 2ML syringe ONE (08:33)
[2023-03-25] MEDS ORDERED: midazolam 1 mg/ML 2ml injection ONE (08:34)
[2023-03-25] MEDS ORDERED: LIDOcaine 0.5% (5mg/ml) 50ml vial ONE (08:55)
[2023-03-25] MEDS ORDERED: propofol inj 20 ML IV ONE (09:09)
[2023-03-25] MEDS ORDERED: BUPIVAcaine/PF 2.5mg/ml (0.25%) 10ml vial IJ ONE (09:13)
[2023-03-25 09:22] VITALS: BP 97/53; PULSE 100; RESP 16; O2SAT 97
[2023-03-25 09:30] VITALS: BP 112/50; PULSE 77; RESP 11; O2SAT 95
[2023-03-25 09:40] VITALS: BP 116/57; PULSE 74; RESP 13; O2SAT 93
[2023-03-25 09:50] VITALS: BP 99/53; PULSE 71; RESP 11; O2SAT 93
[2023-03-25 10:00] VITALS: BP 114/71; PULSE 90; RESP 12; O2SAT 97
== END 2023-03-25 10:02 | disposition home or self-care (01) ==
LOC: PAS 06:19
PROVIDERS: ATTEND Orthopaedic Surgery Hand Surgery
DX: M72.0 Palmar fascial fibromatosis [Dupuytren] (principal); M67.844 Other specified disorders of tendon, left hand; M25.342 Other instability, left hand; J45.909 Unspecified asthma, uncomplicated; G89.29 Other chronic pain; Z90.710 Acquired absence of both cervix and uterus; Z98.890 Other specified postprocedural states; Z90.49 Acquired absence of other specified parts of digestive tract; Z96.652 Presence of left artificial knee joint; Z87.891 Personal history of nicotine dependence; Z86.19 Personal history of other infectious and parasitic diseases; Z88.5 Allergy status to narcotic agent; Z88.8 Allergy status to other drugs, medicaments and biological substances; Z79.82 Long term (current) use of aspirin; Z79.899 Other long term (current) drug therapy
CPT/HCPCS: 26121; 26437; 36415; 80053; 82948; 85025; 93005; J0690; J2250; J2405; J2704; J3010; J3490; J7030; J7120; Z7506; Z7512; A4215; A4618; A7000

== ENCOUNTER 2023-04-29 12:56 | Outpatient (CLI) | payer MEDICARE, MEDICAID ==
[~2023-04-29 12:56] MED LIST changes: -cefazolin 2gm/D5W 100mL 100 ML IV ONE; -famotidine 20mg tablet PO ONE; -ringers solution, lactated 500 ML IV ONE; -ringers solution, lacted 1,000 ML IV ONE; -ringers solution, lacted 1,000 ML IV SCH
[2023-04-29] MEDS ORDERED: DOXY-224 PO (13:30)
[2023-04-29] MEDS ORDERED: RUXO60CR TP (13:30)
[2023-04-29] MEDS ORDERED: BETA15CR15 TOP (13:30)
[2023-04-29 13:56] LABS: BILIRUBIN,URINE NEGATIVE (Neg); CLARITY,URINE SLIGHTLY CLOUDY (Clear); COLOR,URINE YELLOW (Yellow); GLUCOSE, URINE NEGATIVE (Neg); KETONES,URINE TRACE mg/dl (Neg); LEUKOCYTE ESTERASE ,URINE NEGATIVE (Neg); NITRITES, URINE NEGATIVE (Neg); OCCULT BLOOD,URINE NEGATIVE (Neg); PH,URINE 5.5 (4.8-8.0); PROTEIN,URINE NEGATIVE (Neg); UROBILINOGEN,URINE 0.2 E.U/dL (0.2-1.0)
[2023-04-29 13:58] LABS: BASOPHILS % (AUTO) 0.8 % (0-1); EOSINOPHILS # (AUTO) 0.2 X10'3 (0-0.9); LYMPHOCYTES # (AUTO) 1.6 X10'3 (1.1-4.8); MEAN CORPUSCULAR HGB CONC 33.5 g/dL (33.0-36.5); MEAN CORPUSCULAR VOLUME 95.6 FL (78-98); MONOCYTES # (AUTO) 0.5 X10'3 (0-0.9); MONOCYTES % (AUTO) 8.8 % (2-12); NEUTROPHILS # (AUTO) 3.5 X10'3 (1.8-7.7); NEUTROPHILS % (AUTO) 60.4 % (42-75); PRE OP HEMATOCRIT 41.1 % (35.0-45.0); PRE OP HEMOGLOBIN 13.7 g/dL (12.0-16.0); PRE OP PLATELET COUNT 211 X10'3 (140-440); PRE OP WHITE BLOOD COUNT 5.8 10'3 (4.8-10.8); RED CELL DISTRIBUTION WIDTH 12.2 % (11.5-14.5)
[2023-04-29 14:01] LABS: MUCUS STRANDS MANY /LPF (Neg); SQUAMOUS EPITHELIAL CELL,UR MANY /LPF (FEW); UA COLLECTION TYPE CLN CATCH MIDSTREAM
[2023-04-29 14:02] LABS: BACTERIA,URINE FEW /HPF (Neg); WBC,URINE 0-4 /HPF (0-4); YEAST FEW /HPF (NEGATIVE)
[2023-04-29 14:11] LABS: ALBUMIN 3.5 G/DL (3.4-5.0); ALBUMIN/GLOBULIN RATIO 0.9 (1.1-1.5); ALKALINE PHOSPHATASE 79 IU/L (46-116); BLOOD UREA NITROGEN 19 MG/DL (7-18); BUN/CREATININE RATIO 27.1 (10.0-20.0); CALCIUM 9.3 MG/DL (8.5-10.1); CHLORIDE 107 MMOL/L (99-107); PRE OP ALT 24 U/L (30-65); PRE OP ANION GAP 9 (8-16); PRE OP AST 17 U/L (10-37); PRE OP BILIRUB, TOTAL 0.4 MG/DL (0.0-1.0); PRE OP GLUCOSE 71 MG/DL (70-104); PRE OP POTASSIUM 3.7 MMOL/L (3.4-5.1); PRE OP SODIUM 143 MMOL/L (135-145); TOTAL PROTEIN 7.3 G/DL (6.4-8.2); eGFR 82 ML/MIN
== END 2023-04-29 23:59 | disposition home or self-care (01) ==
LOC: LAB 12:56 → EDSTATUS 06-14 07:30
PROVIDERS: ATTEND Podiatrist Foot & Ankle Surgery
DX: Z01.812 Encounter for preprocedural laboratory examination (principal); S80.12XA Contusion of left lower leg, initial encounter; M20.41 Other hammer toe(s) (acquired), right foot; M77.41 Metatarsalgia, right foot; M20.21 Hallux rigidus, right foot; M25.374 Other instability, right foot; M19.071 Primary osteoarthritis, right ankle and foot; M79.671 Pain in right foot; X58.XXXA Exposure to other specified factors, initial encounter; Y93.89 Activity, other specified; Y92.89 Other specified places as the place of occurrence of the external cause; Y99.8 Other external cause status
CPT/HCPCS: 36415; 80053; 81001; 85025

== ENCOUNTER 2023-05-02 11:17 | Emergency (ER) | payer MEDICARE, MEDICAID ==
[~2023-05-02] VITALS: Ht 160 cm; Wt 68.0 kg
[~2023-05-02 11:17] MED LIST changes: -ALBU90AE INH; -ASPI-1397 PO; +BETA15CR15 TOP; +DOXY-224 PO; -EVOL140P3 SQ; +RUXO60CR TP; -VITAMIN B; -VITAMIN C; -VITAMIN D
[2023-05-02 11:22] VITALS: TEMP 98.1
[2023-05-02] MEDS: meclizine 12.5mg tablet PO PRN (11:50)
[2023-05-02] MEDS: normal saline 1000ML IV soln IVB ONE (11:51)
[2023-05-02 12:08] LABS: BASOPHILS # (AUTO) 0.1 X10'3 (0-0.2); EOSINOPHILS # (AUTO) 0.2 X10'3 (0-0.9); EOSINOPHILS % (AUTO) 3.6 % (0-6); HEMATOCRIT 42.8 % (35.0-45.0); HEMOGLOBIN 14.3 g/dl (12.0-16.0); LYMPHOCYTES # (AUTO) 1.4 X10'3 (1.1-4.8); LYMPHOCYTES % (AUTO) 28.3 % (21-51); MEAN CORPUSCULAR HEMOGLOBIN 32.4 PG (27.0-31.0); MEAN CORPUSCULAR HGB CONC 33.5 g/dL (33.0-36.5); MEAN CORPUSCULAR VOLUME 96.7 FL (78-98); MEAN PLATELET VOLUME 10.9 FL (7.4-10.4); MONOCYTES # (AUTO) 0.5 X10'3 (0-0.9); MONOCYTES % (AUTO) 9.8 % (2-12); NEUTROPHILS # (AUTO) 2.9 X10'3 (1.8-7.7); NEUTROPHILS % (AUTO) 57.3 % (42-75); PLATELET COUNT 168 X10'3 (140-440); RED BLOOD COUNT 4.42 X10'6 (4.20-5.60); WHITE BLOOD COUNT 5.1 X10'3 (4.5-11.0)
[2023-05-02 12:26] LABS: ALBUMIN 3.3 G/DL (3.4-5.0); ANION GAP 7 (8-16); BLOOD UREA NITROGEN 19 MG/DL (7-18); BUN/CREATININE RATIO 27.5 (10.0-20.0); CALCIUM 9.4 MG/DL (8.5-10.1); CHLORIDE 108 MMOL/L (99-107); CREATININE 0.69 MG/DL (0.40-0.90); GLUCOSE 84 MG/DL (70-104); POTASSIUM 4.2 MMOL/L (3.5-5.1); PRO BRAIN NATRIURETIC PEPTIDE 180 PG/ML (0-450); SODIUM 140 MMOL/L (135-145); TOTAL CARBON DIOXIDE 24.7 MMOL/L (24-32); eCRCL 58 ML/MIN; eGFR 83 ML/MIN
[2023-05-02 14:13] VITALS: BP 124/58; PULSE 89; RESP 18; O2SAT 98
== END 2023-05-02 14:17 | disposition home or self-care (01) ==
LOC: ER 11:18
DX: R04.0 Epistaxis (principal); R42 Dizziness and giddiness; R06.00 Dyspnea, unspecified; R51.9 Headache, unspecified; J44.9 Chronic obstructive pulmonary disease, unspecified; G89.29 Other chronic pain; M54.50 Low back pain, unspecified; K30 Functional dyspepsia; E78.00 Pure hypercholesterolemia, unspecified; M81.0 Age-related osteoporosis without current pathological fracture; F41.9 Anxiety disorder, unspecified; Z85.038 Personal history of other malignant neoplasm of large intestine; Z90.710 Acquired absence of both cervix and uterus; Z98.890 Other specified postprocedural states; Z88.5 Allergy status to narcotic agent; Z88.8 Allergy status to other drugs, medicaments and biological substances; Z79.899 Other long term (current) drug therapy; Z79.2 Long term (current) use of antibiotics
CPT/HCPCS: 70450; 71045; 80048; 83880; 84484; 85025; 93005; 96360; 99285; J7030; J8597